=== PATIENT | female | born 1995 | race Hispanic/Latino ===

== ENCOUNTER 2020-01-28 17:37 | Emergency (ER) | payer BC, OTHER ==
[2020-01-28] MEDS ORDERED: NA CHLORIDE 0.9% 1,000 ML ONE (18:21)
[2020-01-28] MEDS ORDERED: ACETAMINOPHEN 500 MG TAB ONE (18:21)
[2020-01-28 18:39] LABS: Absolute Lymphocytes (CBC) 0.9 K/uL (0.7-4.9); Basophils % 0.4 % (0-1.3); Hematocrit 37.7 % (36.0-45.0); Lymphocytes % 43.2 % (15.3-44.8); MPV 10.5 fL (7.6-11.3); RBC Red Blood Cell Count 4.49 M/uL (3.86-4.86)
[2020-01-28 18:52] LABS: Protime INR 1.22
[2020-01-28 19:01] LABS: ALT/SGPT 134 U/L (12-78); AST/SGOT 128 U/L (15-37); Albumin 3.7 g/dL (3.4-5.0); Alkaline Phosphatase 66 U/L (45-117); BUN Blood Urea Nitrogen 9 mg/dL (7-18); Bicarbonate 23 mmol/L (21-32); Bilirubin Direct 0.2 mg/dL (0-0.2); Bilirubin Total 0.7 mg/dL (0.2-1.0); CKMB Creatine Kinase MB < 1.0 ng/mL (0.3-3.6); Creatine Phosphokinase 96 U/L (26-192); Glucose Level 108 mg/dL (74-106); Lipase 102 U/L (73-393); Potassium 3.2 mmol/L (3.5-5.1); Sodium Level 139 mmol/L (136-145); Troponin (Emerg Dept Use Only) < 0.02 ng/mL (0.0-0.045)
[2020-01-28] MEDS ORDERED: DIPHENHYDRAMINE 50 MG/ML VIAL ONE (19:21)
[2020-01-28] MEDS ORDERED: METOCLOPRAMIDE 10 MG/2mL INJ ONE (19:21)
[2020-01-28] MEDS ORDERED: dexAMETHasone 10 MG/ML VIAL ONE (19:21)
[2020-01-28] MEDS ORDERED: POTASSIUM CL SA 10 MEQ TAB PO ONE (19:25)
[2020-01-28 19:55] LABS: Blood Morphology Comment NOT SEEN (NOT SEEN); Platelet Estimate DECR
--- NOTE | 2020-01-28 20:04 | RAD REPORT ---
EXAM DESCRIPTION: RAD - Chest Single View - 01/28/2020 7:43 pm CLINICAL HISTORY: DYSPNEA COMPARISON: None TECHNIQUE: AP portable chest image was obtained 01/28/2020 7:43 pm . FINDINGS: Lung volumes are very low. Low lung volumes, portable technique and large body habitus jacinto it detail. No focal mass or consolidation seen. Heart and vasculature are normal. No measurable pleur al effusion and no pneumothorax. No acute bony abnormality seen. No acute aortic findings suspected. IMPRESSION: Limited portable examination without acute cardiopulmonary finding.
--- NOTE | 2020-01-28 20:07 | RAD REPORT ---
EXAM DESCRIPTION: CT - Chest For Pe Angio - 01/28/2020 7:48 pm CLINICAL HISTORY: Chest pain;Dyspnea COMPARISON: Chest Single View dated 01/28/2020 TECHNIQUE: Dynamically enhanced 3 mm thick images of the chest were obtained during administration o f approximately 150mL Isovue 370 IV contrast. Coronal and oblique MIP reconstruction images were gene rated and reviewed. Exam utilizes a protocol to evaluate the pulmonary arterial tree. All CT scans are performed using dose optimization technique as appropriate and may include automated exposure control or mA/KV adjustment according to patient size. FINDINGS: No pulmonary emboli are identified. The aorta as imaged shows no acute or suspicious finding. No pericardial thickening or effusion. No infiltrate or mass in the lung parenchyma. No pleural effusion or pleural thickening. No mediastinal or hilar suspicious masses. No chest wall masses or abnormal axillary lymphadenopathy. Limited upper abdomen imaging shows probable fatty infiltration. Borderline to mild splenomegaly is p resent but neither the liver nor spleen are fully imaged. IMPRESSION: No pulmonary emboli identified. No other significant or suspicious chest findings. Fatty infiltration and suspected splenomegaly of partially imaged liver and spleen.
[2020-01-28 21:50] LABS: Urine Bacteria <20 /HPF (<20); Urine Culture Reflex Order NOT NEEDED; Urine RBC <5 /HPF (NONE SEEN)
[2020-01-28 21:50] LABS: Urine Blood NEGATIVE (NEG); Urine Glucose NEGATIVE (NEG); Urine Protein NEGATIVE (NEG); Urine pH 5.5 (5.0-7.0)
--- NOTE | 2020-01-28 22:41 | EDPHYS ---
Physician Documentation [facility] Name: Deidra Acevedo Age: 24 yrs Sex: Female : 1995 Arrival Date: 01/28/2020 Time: 17:42 Bed 8 Private MD: ED Physician Michael Tracy HPI: 01/27 18:51 This 24 yrs old Female presents to ER via Wheelchair with complaints of jr8 Headache, Fever, Cough, Shortness Of Breath. 18:51 Onset: The symptoms/episode began/occurred gradually, 4 day(s) ago. Associated signs jr8 and symptoms: Pertinent positives: fever, malaise, cough, shortness of breath, chest tightness, and body aches . The patient has not experienced similar symptoms in the past. The patient has not recently seen a physician. Stated that she was covid tested via nasal PCR and came back negative but getting worse . 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 - Social history:: Smoking status: unknown. ROS: 18:51 Eyes: Negative for injury, pain, redness, and discharge, Neck: Negative for injury, jr8 pain, and swelling, Abdomen/GI: Negative for abdominal pain, nausea, vomiting, diarrhea, and constipation, Back: Negative for injury and pain, MS/Extremity: Negative for injury and deformity, Skin: Negative for injury, rash, and discoloration. 18:51 Constitutional: Positive for body aches, chills, fever, malaise. 18:51 ENT: Positive for sore throat. 18:51 Cardiovascular: Positive for chest pain, Negative for edema, orthopnea, palpitations, paroxysmal nocturnal dyspnea. 18:51 Respiratory: Positive for cough, shortness of breath, Negative for sputum production, wheezing. 18:51 Neuro: Positive for headache. Exam: 18:51 Eyes: Pupils equal round and reactive to light, extra-ocular motions intact. Lids and jr8 lashes normal. Conjunctiva and sclera are non-icteric and not injected. Cornea within normal limits. Periorbital areas with no swelling, redness, or edema. ENT: Nares patent. No nasal discharge, no septal abnormalities noted. Tympanic membranes are normal and external auditory canals are clear. Oropharynx with no redness, swelling, or masses, exudates, or evidence of obstruction, uvula midline. Mucous membranes moist. 18:51 Abdomen/GI: Soft, non-tender, with normal bowel sounds. No distension or tympany. No guarding or rebound. No evidence of tenderness throughout. Back: No spinal tenderness. No costovertebral tenderness. Full range of motion. Skin: Warm, dry with normal turgor. Normal color with no rashes, no lesions, and no evidence of cellulitis. MS/ Extremity: Pulses equal, no cyanosis. Neurovascular intact. Full, normal range of motion. Neuro: Awake and alert, GCS 15, oriented to person, place, time, and situation. Cranial nerves II-XII grossly intact. Motor strength 5/5 in all extremities. Sensory grossly intact. Cerebellar exam normal. Normal gait. 18:51 Constitutional: The patient appears alert, awake, anxious, obviously ill. 18:51 Cardiovascular: Rate: tachycardic, Rhythm: regular, Pulses: Pulses are 2+ in right radial artery and left radial artery. Heart sounds: normal, Edema: is not appreciated. 18:51 Respiratory: the patient does not display signs of respiratory distress, Respirations: tachypnea, that is mild, Breath sounds: are clear throughout, no bronchial sounds, no decreased breath sounds, no rales, rhonchi, no stridor, no wheezing. Vital Signs: 18:03 BP 121 / 96; Pulse 133; Resp 32; Temp 103.2(O); Pulse Ox 100% ; Weight 118.39 kg; sv Height 5 ft. 4 in. (162.56 cm); 18:42 BP 161 / 70; Pulse 113; Resp 29; Pulse Ox 100% ; jl7 19:38 BP 155 / 78; Pulse 111; Resp 27 S; Pulse Ox 100% on R/A; jd3 20:13 BP 130 / 69; Pulse 110; Resp 25 S; Temp 100.8(O); Pulse Ox 99% on R/A; jd3 21:22 BP 124 / 67; Pulse 116; Resp 26 S; Pulse Ox 98% on R/A; jd3 22:06 Pulse 99; Resp 22 S; Temp 99.0(O); Pulse Ox 98% on R/A; jd3 23:00 Pulse 96; Resp 20 S; Pulse Ox 97% on R/A; jd3 18:03 Body Mass Index 44.80 (118.39 kg, 162.56 cm) sv MDM: 18:12 Patient medically screened. [facility] 22:05 Data reviewed: vital signs, nurses notes, lab test result(s), EKG, radiologic studies, [facility] CT scan, plain films. Data interpreted: Pulse oximetry: on room air is 98 %. Interpretation: normal. Counseling: I had a detailed discussion with the patient and/or guardian regarding: the historical points, exam findings, and any diagnostic results supporting the discharge/admit diagnosis, lab results, radiology results, the need for outpatient follow up, a family practitioner, to return to the emergency department if symptoms worsen or persist or if there are any questions or concerns that arise at home. Response to treatment: the patient's symptoms have markedly improved after treatment, patient is well hydrated. ED course: Patient without any source of bacterial infection based on labs and exam. Symptoms consistent with COVID-19 Viral illness. Able to maintain airway and with normal oxygen saturation. Not needing oxygen at this time. VS normalizing after antipyretics and fluids. Patient ok to go home at this time with f/u. Retested her as it sounds like first test was false positive and incorrectly done from what patient was telling us. Knows to come back if worse. Spoke to her PCP as well . 01/27 18:09 Order name: Fibrinogen [facility] 01/27 18:09 Order name: C-Reactive Protein [facility] 01/27 18:09 Order name: D-Dimer; Complete Time: 19:13 [facility] 01/27 18:09 Order name: Basic Metabolic Panel; Complete Time: 19:13 [facility] 01/27 18:09 Order name: Blood Culture Adult (2) [facility] 01/27 18:09 Order name: CBC with Diff; Complete Time: 20:06 [facility] 01/27 18:09 Order name: Ckmb; Complete Time: 19:13 [facility] 01/27 18:09 Order name: CPK; Complete Time: 19:13 [facility] 01/27 18:09 Order name: Lactate; Complete Time: 19:40 [facility] 01/27 18:09 Order name: LFT's; Complete Time: 19:13 [facility] 01/27 18:09 Order name: Lipase; Complete Time: 19:13 8 01/27 18:09 Order name: Procalcitonin; Complete Time: 19:40 8 01/27 18:09 Order name: Protime (+inr); Complete Time: 19:13 8 01/27 18:09 Order name: Ptt, Activated; Complete Time: 19:13 8 01/27 18:09 Order name: Troponin (emerg Dept Use Only); Complete Time: 19:13 8 01/27 18:09 Order name: Urine Microscopic Only; Complete Time: 22:05 8 01/27 18:09 Order name: Chest Single View XRAY; Complete Time: 20:06 8 01/27 18:10 Order name: Fibrinogen; Complete Time: 19:13 EDMS 01/27 18:10 Order name: C-Reactive Protein; Complete Time: 19:13 EDMS 01/27 18:38 Order name: Glucose, Ancillary Testing; Complete Time: 18:45 EDMS 01/27 18:47 Order name: COVID-19 [facility] 01/27 19:14 Order name: CT Chest For PE Angio; Complete Time: 20:19 8 01/27 19:38 Order name: Manual Differential; Complete Time: 20:06 EDMS 01/27 21:41 Order name: Urine Dipstick--Ancillary (enter results); Complete Time: 22:05 wi5 01/27 21:41 Order name: Urine --Ancillary (enter results); Complete Time: 22:05 wi5 01/27 22:29 Order name: Lactate Sepsis 2 HR Follow-up; Complete Time: 22:39 EDMS 01/27 18:09 Order name: Accucheck; Complete Time: 18:45 01/27 18:09 Order name: Cardiac monitoring; Complete Time: 18:45 01/27 18:09 Order name: EKG - Nurse/Tech; Complete Time: 18:45 01/27 18:09 Order name: IV Saline Lock - Large Bore; Complete Time: 18:45 01/27 18:09 Order name: Labs collected and sent; Complete Time: 18:45 8 01/27 18:09 Order name: O2 Per Protocol; Complete Time: 18:45 01/27 18:09 Order name: O2 Sat Monitoring; Complete Time: 18:45 jr8 01/27 18:09 Order name: Urine Dipstick-Ancillary (obtain specimen); Complete Time: 21:41 jr8 Administered Medications: 18:45 Drug: Acetaminophen 1000 mg Route: PO; hb 19:45 Follow up: Response: No adverse reaction; Temperature is decreased jd3 18:45 Drug: NS 0.9% 1000 ml Route: IV; Rate: 1000 ml; Site: right antecubital; hb 19:45 Follow up: Response: No adverse reaction; IV Status: Completed infusion; IV Intake: jd3 1000ml 19:36 Drug: Decadron - Dexamethasone 10 mg Route: IVP; Site: right antecubital; jd3 20:21 Follow up: Response: No adverse reaction jd3 19:36 Drug: Reglan 10 mg Route: IVP; Site: right antecubital; jd3 20:21 Follow up: Response: No adverse reaction jd3 19:36 Drug: Benadryl 25 mg Route: IVP; Site: right antecubital; jd3 20:21 Follow up: Response: No adverse reaction jd3 19:36 Drug: Potassium Chloride 40 mEq Route: PO; jd3 20:21 Follow up: Response: No adverse reaction jd3 Disposition: 01/28/20 22:41 Discharged to Home. Impression: Viral infection, unspecified, Fever, unspecified, Dehydration. - Condition is Stable. - Discharge Instructions: Dehydration, Adult, Viral Respiratory Infection, COVID-19. - Prescriptions for Zofran 4 mg Oral Tablet - take 1 tablet by ORAL route every 12 hours As needed; 20 tablet. prednisone 10 mg Oral tablet - take 1 tablet by ORAL route 2 times per day for 14 days; 28 tablet. - Medication Reconciliation Form, Thank You Letter, Antibiotic Education, Prescription Opioid Use form. - Follow up: Private Physician; When: 1 week; Reason: Recheck today's complaints, Continuance of care, Re-evaluation by your physician. - Problem is new. - Symptoms have improved. Addendum: 01/31/2020 06:02 Co-signature as Attending Physician, Michael Tracy MD I agree with the assessment and c vu plan of care. Signatures: Dispatcher [employer] Edna Vigil RN RN sv Anderson, Corey, MD MD cha Roszak, Josh, PA PA jr8 Eva Felton RN RN Funmilayo Hirsch RN RN jl7 Rai Acosta RN RN jd3 Corrections: (The following items were deleted from the chart) 01/27 23:18 22:41 01/28/2020 22:41 Discharged to Home. Impression: Viral infection, unspecified; jd3 Fever, unspecified; Dehydration. Condition is Stable. Forms are Medication Reconciliation Form, Thank You Letter, Antibiotic Education, Prescription Opioid Use. Follow up: Private Physician; When: 1 week; Reason: Recheck today's complaints, Continuance of care, Re-evaluation by your physician. Problem is new. Symptoms have improved. jr8
--- NOTE | 2020-01-28 22:41 | ER ---
Nurse's Notes [facility] Name: Deidra Acevedo Age: 24 yrs Sex: Female : 1995 Arrival Date: 01/28/2020 Time: 17:42 Bed 8 Private MD: Diagnosis: Viral infection, unspecified;Fever, unspecified;Dehydration Presentation: 01/27 17:59 Chief complaint: Patient states: headache, fever Tmax 103, unable to sleep, SOB worse sv with the headache, cough, unable to walk, generalized weakness, chest tightness since . Pressure in right side of jaw. Tested for COVID on 01/24/20 was negative. Coronavirus screen: Surgical mask placed on patient. Patient moved to private room, placed in contact and droplet isolation with eye protection until further assessment. Patient reports a cough. Patient reports shortness of breath or difficulty breathing. Patient reports a measured and/or subjective temperature greater than 100.4F. Patient denies travel on a cruise ship or to a country the [facility] currently lists as an affected area. Patient denies contact with known and/or suspected case of COVID-19. Ebola Screen: No symptoms or risks identified at this time. Risk Assessment: Do you want to hurt yourself or someone else? Patient reports no desire to harm self or others. Onset of symptoms was January 24, 2020. 17:59 Method Of Arrival: Wheelchair sv 17:59 Acuity: KIM 2 sv 18:03 Initial Sepsis Screen: Does the patient meet any 2 criteria? RR > 20 per min. Temp sv <36.0*C (96.8*F)) or > 38.3*C (100.9*F). HR > 90 bpm. Yes Does the patient have a suspected source of infection? Yes: Other: fever. Triage Assessment: 17:59 Headache History: The patient has had previous headaches. General: Appears in no sv apparent distress. uncomfortable, obese, Behavior is cooperative, appropriate for age. Pain: Complains of pain in face, scalp and chest. Neuro: Level of Consciousness is awake, alert, obeys commands, Oriented to person, place, time, situation, Reports dizziness, headache photophobia. Respiratory: Reports shortness of breath cough that is non-productive, Respiratory effort is even, Respiratory pattern is tachypnea. 19:39 Pain: Pain began gradually, Also complains of nausea. 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 - Social history:: Smoking status: unknown. Screenin:41 Abuse screen: Denies threats or abuse. Denies injuries from another. Nutritional jl7 screening: No deficits noted. Tuberculosis screening: No symptoms or risk factors identified. Fall Risk IV access (20 points). Total Rasmussen Fall Scale indicates No Risk (0-24 pts). Assessment: 18:09 Reassessment: Code Sepsis called. sv 18:30 General: Appears distressed, Behavior is cooperative, anxious, restless. Pain: Pain hb currently is 7 out of 10 on a pain scale. Neuro: Level of Consciousness is awake, alert, obeys commands, Oriented to person, place, time, situation. Cardiovascular: Capillary refill < 3 seconds Patient's skin is warm and dry. Rhythm is sinus tachycardia. Respiratory: Reports shortness of breath at rest cough that is productive, Airway is patent Respiratory effort is mildly labored Respiratory pattern is tachypnea. GI: Reports nausea. : No signs and/or symptoms were reported regarding the genitourinary system. EENT: No signs and/or symptoms were reported regarding the EENT system. Derm: Skin is pink, warm \T\ dry. Musculoskeletal: Reports body aches. 19:37 General: Appears uncomfortable, Behavior is cooperative, anxious. Pain: Complains of jd3 pain in head Quality of pain is described as aching, pressure. Neuro: Level of Consciousness is awake, alert, obeys commands, Oriented to person, place, time, situation. Cardiovascular: Capillary refill < 3 seconds Patient's skin is warm and dry. Rhythm is sinus tachycardia. Respiratory: Reports shortness of breath at rest cough that is persistent Airway is patent Respiratory effort is even, shallow, Respiratory pattern is tachypnea. GI: Abdomen is round non-distended, Abd is soft and non tender X 4 quads. Reports nausea. : No signs and/or symptoms were reported regarding the genitourinary system. EENT: No signs and/or symptoms were reported regarding the EENT system. Derm: Skin is intact, Skin is dry, Skin is normal, Skin temperature is warm. Musculoskeletal: Circulation, motion, and sensation intact. Range of motion: intact in all extremities, Reports body aches. 20:27 Reassessment: No changes from previously documented assessment. Patient and/or family jd3 updated on plan of care and expected duration. Pain level reassessed. Patient states feeling better. 21:00 Reassessment: Niki GODFREY on phone requesting to speak with ERP, informed ERP with sg pt, Niki states she will text/call the ERP herself. 21:08 Reassessment: father updated about the patent's status. mother's number- [phone]. mg2 21:22 Reassessment: No changes from previously documented assessment. Patient and/or family jd3 updated on plan of care and expected duration. Pain level reassessed. awaiting disposition and results. 22:07 Reassessment: Patient appears in no apparent distress at this time. Patient and/or jd3 family updated on plan of care and expected duration. Pain level reassessed. Patient states feeling better. 23:00 Reassessment: Patient appears in no apparent distress at this time. Patient and/or jd3 family updated on plan of care and expected duration. Pain level reassessed. Patient is alert, oriented x 3, equal unlabored respirations, skin warm/dry/pink. awaiting family for discharge Patient states feeling better. Vital Signs: 18:03 BP 121 / 96; Pulse 133; Resp 32; Temp 103.2(O); Pulse Ox 100% ; Weight 118.39 kg; sv Height 5 ft. 4 in. (162.56 cm); 18:42 BP 161 / 70; Pulse 113; Resp 29; Pulse Ox 100% ; jl7 19:38 BP 155 / 78; Pulse 111; Resp 27 S; Pulse Ox 100% on R/A; jd3 20:13 BP 130 / 69; Pulse 110; Resp 25 S; Temp 100.8(O); Pulse Ox 99% on R/A; jd3 21:22 BP 124 / 67; Pulse 116; Resp 26 S; Pulse Ox 98% on R/A; jd3 22:06 Pulse 99; Resp 22 S; Temp 99.0(O); Pulse Ox 98% on R/A; jd3 23:00 Pulse 96; Resp 20 S; Pulse Ox 97% on R/A; jd3 18:03 Body Mass Index 44.80 (118.39 kg, 162.56 cm) sv ED Course: 17:42 Patient arrived in ED. mr 17:59 Arm band placed on. sv 18:02 Triage completed. sv 18:07 Kunal Staples PA is PHCP. jr8 18:07 Michael Tracy MD is Attending Physician. jr8 18:42 Patient has correct armband on for positive identification. Placed in gown. Bed in low jl7 position. Call light in reach. Side rails up X2. secured entrance monitor on. Pulse ox on. NIBP on. 18:42 Inserted saline lock: 20 gauge in right antecubital area, using aseptic technique. jl7 Blood collected. 18:43 Initial lab(s) drawn, by ED staff, sent to lab. First set of blood cultures drawn by ED jl7 staff. Second set of blood cultures drawn by lab staff. EKG done, by ED staff, reviewed by Kunal SANTOS. 18:44 Eva Felton, RN is Primary Nurse. hb 19:43 Chest Single View XRAY In Process Unspecified. EDMS 19:49 CT Chest For PE Angio In Process Unspecified. EDMS 23:00 No provider procedures requiring assistance completed. IV discontinued, intact, jd3 bleeding controlled, No redness/swelling at site. Pressure dressing applied. Administered Medications: 18:45 Drug: Acetaminophen 1000 mg Route: PO; hb 19:45 Follow up: Response: No adverse reaction; Temperature is decreased jd3 18:45 Drug: NS 0.9% 1000 ml Route: IV; Rate: 1000 ml; Site: right antecubital; hb 19:45 Follow up: Response: No adverse reaction; IV Status: Completed infusion; IV Intake: jd3 1000ml 19:36 Drug: Decadron - Dexamethasone 10 mg Route: IVP; Site: right antecubital; jd3 20:21 Follow up: Response: No adverse reaction jd3 19:36 Drug: Reglan 10 mg Route: IVP; Site: right antecubital; jd3 20:21 Follow up: Response: No adverse reaction jd3 19:36 Drug: Benadryl 25 mg Route: IVP; Site: right antecubital; jd3 20:21 Follow up: Response: No adverse reaction jd3 19:36 Drug: Potassium Chloride 40 mEq Route: PO; jd3 20:21 Follow up: Response: No adverse reaction jd3 Intake: 19:45 IV: 1000ml; Total: 1000ml. jd3 Outcome: 22:41 Discharge ordered by MD. varma 23:01 Condition: stable jd3 23:01 Discharge instructions given to patient, Instructed on discharge instructions, follow up and referral plans. medication usage, Demonstrated understanding of instructions, follow-up care, medications. 23:18 Discharged to home via wheelchair, with family. jd3 23:18 Patient left the ED. jd3 Signatures: Dispatcher [employer] EDMS Edna Wilkerson RN JUVE sv Homero Reyes, RN JUVE sanders Natalie Evans mr BelKunal PA PA jr8 Baxter, Heather RN Funmilayo Casanova RN RN jl7 Rai Acosta RN RN jMoo Alvarado RN RN mg2 Corrections: (The following items were deleted from the chart) 18:06 17:59 Acuity: KIM 3 sv sv 20:18 20:13 BP 130 / 69; Pulse 110bpm; Resp 25bpm; Spontaneous; Pulse Ox 99% RA; jd3 jd3 21:23 21:22 BP 124 / 67; Pulse 127bpm; Resp 26bpm; Spontaneous; Pulse Ox 98% RA; jd3 jd3 23:05 23:00 Reassessment: Patient appears in no apparent distress at this time. Patient jd3 and/or family updated on plan of care and expected duration. Pain level reassessed. Patient is alert, oriented x 3, equal unlabored respirations, skin warm/dry/pink. Patient states feeling better. jd3
[2020-01-28 23:56] VITALS: BP 124/67
[2020-01-28 23:57] VITALS: TEMP 99
[2020-01-28 23:58] VITALS: O2SAT 97
--- NOTE | 2020-01-29 10:56 | EKG ---
Test Date: 2020-01-28 Test Time: 18:33:10 Consumer Insight Manager: HB MEASUREMENT RESULTS: Intervals: Rate: 118 MO: 150 QRSD: 74 QT: 304 QTc: 426 [place]: P: 42 MO: 150 QRS: 41 T: 6 INTERPRETIVE STATEMENTS: Sinus tachycardia Cannot rule out Anterior infarct, age undetermined Abnormal ECG No previous ECG available for comparison Electronically Signed On 01-29-20 10:53:58 CDT by Guerrero Dave
== END 2020-01-28 23:18 | disposition home or self-care (01) ==
LOC: ER 17:37
DX: B34.9 Viral infection, unspecified (principal); Z20.828 Contact with and (suspected) exposure to other viral communicable diseases; E86.0 Dehydration
CPT/HCPCS: 96361; 93005; 87040 ×2; 85025; 80048; 36415; 85384; 82550; 81025; 85610; 82947; 85379; 80076; 83605 ×2; 85730; 84484; 82553; 83690; 84145; 86140; 71275; 71045; 96375; 96374; 99284; U0001; Q9967; J2765; J1200; J1100; J7030; 81003; 81015

== ENCOUNTER 2021-04-20 07:35 | Emergency (ER) | payer BC ==
[2021-04-20 08:52] LABS: Absolute Lymphocytes (CBC) 1.2 K/uL (0.7-4.9); Basophils % 0.3 % (0-1.3); Hematocrit 38.4 % (36.0-45.0); Lymphocytes % 28.6 % (15.3-44.8); MPV 9.7 fL (7.6-11.3); RBC Red Blood Cell Count 4.52 M/uL (3.86-4.86)
[2021-04-20 09:14] LABS: Potassium 3.4 mmol/L (3.5-5.1)
[2021-04-20] MEDS ORDERED: ACETAMINOPHEN 500 MG TAB ONE (09:16)
[2021-04-20] MEDS ORDERED: ONDANSETRON 4 MG/2 ML VIAL ONE (10:30)
[2021-04-20] MEDS ORDERED: NA CHLORIDE 0.9% 1,000 ML ONE (10:30)
[2021-04-20] MEDS ORDERED: CASIRIVIMAB/IMDEVIMAB 10 ML VIAL ONE (11:06)
[2021-04-20] MEDS ORDERED: NA CHLORIDE 0.9% 250 ML ONE (11:42)
--- NOTE | 2021-04-20 12:25 | EDPHYS ---
Physician Documentation [facility] Name: Deidra Acevedo Age: 25 yrs Sex: Female : 1995 Arrival Date: 04/20/2021 Time: 07:43 Bed 20 Private MD: ED Physician Michael Tracy HPI: 04/20 08:21 This 25 yrs old Female presents to ER via Wheelchair with complaints of kb Nausea, Dizziness. 08:21 The patient presents to the emergency department with nausea, vomiting. Onset: The kb symptoms/episode began/occurred 4 day(s) ago. Possible causes: unknown. The symptoms are aggravated by nothing. The symptoms are alleviated by nothing. Associated signs and symptoms: Pertinent positives: abdominal pain, nausea, vomiting. Severity of symptoms: At their worst the symptoms were moderate in the emergency department the symptoms are unchanged. The patient has not experienced similar symptoms in the past. The patient has not recently seen a physician. Pt reports nausea, vomiting, dizziness, cough and decreased appetite since Tuesday. Fever started yesterday. 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 - Social history:: Smoking status: Patient denies any tobacco usage or history of. ROS: 08:21 Cardiovascular: Negative for chest pain, palpitations, and edema. kb 08:21 Constitutional: Positive for fever. 08:21 Respiratory: Positive for cough. 08:21 Abdomen/GI: Positive for nausea and vomiting. 08:21 Neuro: Positive for dizziness. 08:21 All other systems are negative. Exam: 08:26 Constitutional: This is a well developed, well nourished patient who is awake, alert, kb and in no acute distress. Head/Face: Normocephalic, atraumatic. ENT: Moist Mucous membranes Respiratory: Respirations even and unlabored. No increased work of breathing, no retractions or nasal flaring. Abdomen/GI: Soft, non-tender. No distention Skin: Warm, dry with normal turgor. Normal color. MS/ Extremity: Pulses equal, no cyanosis. Neurovascular intact. Full, normal range of motion. Neuro: Awake and alert, GCS 15, oriented to person, place, time, and situation. Moves all extremities. Normal gait. Psych: Awake, alert, with orientation to person, place and time. Behavior, mood, and affect are within normal limits. Vital Signs: 07:45 BP 135 / 66; Pulse 123; Resp 18 S; Temp 101.8(O); Pulse Ox 98% on R/A; Weight 120.2 kg aa5 (R); Height 5 ft. 4 in. (162.56 cm) (R); Pain 0/10; 08:59 BP 112 / 61 Supine; Pulse 112 LA; tc5 08:59 BP 122 / 61 Sitting; Pulse 110 LA; tc5 08:59 BP 99 / 63 Standing; Pulse 120 LA; tc5 10:13 BP 136 / 74; Pulse 102; Resp 15; Temp 99.1; Pulse Ox 98% ; Pain 0/10; tc5 11:30 BP 117 / 71; Pulse 99; Resp 16; Pulse Ox 98% ; tc5 12:04 BP 122 / 71; Pulse 98; Resp 18; Pulse Ox 98% ; tc5 12:50 BP 122 / 71; Pulse 98; Resp 18; Pulse Ox 98% ; Pain 0/10; tc5 13:14 BP 128 / 80; Pulse 94; Resp 18; Pulse Ox 97% ; tc5 07:45 Body Mass Index 45.49 (120.20 kg, 162.56 cm) aa5 Isabelle Coma Score: 08:59 Eye Response: spontaneous(4). Verbal Response: oriented(5). Motor Response: obeys tc5 commands(6). Total: 15. MDM: 07:45 Patient medically screened. kb 08:26 Data reviewed: vital signs, nurses notes. Data interpreted: Pulse oximetry: on room air kb is 98 %. Interpretation: normal. 12:24 Counseling: I had a detailed discussion with the patient and/or guardian regarding: the kb historical points, exam findings, and any diagnostic results supporting the discharge/admit diagnosis, lab results, the need for outpatient follow up, a family practitioner, to return to the emergency department if symptoms worsen or persist or if there are any questions or concerns that arise at home. 04/20 07:56 Order name: CBC with Diff; Complete Time: 08:53 kb 04/20 07:56 Order name: Basic Metabolic Panel; Complete Time: 09:15 kb 04/20 07:56 Order name: [place] Screen Profile; Complete Time: 09:15 kb 04/20 09:52 Order name: SARS-COV-2 RT PCR; Complete Time: 09:52 EDMS 04/20 07:51 Order name: Orthostatics kb 04/20 07:56 Order name: IV Start; Complete Time: 08:49 kb 04/20 09:54 Order name: Vital Signs kb Administered Medications: 08:58 Drug: Tylenol 1000 mg Route: PO; tc5 13:15 Follow up: Response: No adverse reaction tc5 10:13 Drug: NS 0.9% 1000 ml Route: IV; Rate: 1000 ml; Site: right forearm; tc5 11:29 Follow up: Response: No adverse reaction tc5 12:05 Follow up: IV Status: Completed infusion; IV Intake: 1000ml tc5 13:15 Follow up: Response: No adverse reaction tc5 10:13 Drug: Zofran (Ondansetron) 4 mg Route: IVP; Site: right forearm; tc5 11:29 Follow up: Response: No adverse reaction tc5 13:15 Follow up: Response: No adverse reaction tc5 11:29 Drug: REGEN-COV Dose Pack 120 mg/mL-120 mg/mL (EUA) 1 application Route: IV; Rate: tc5 calculated rate; Site: right forearm; 12:49 Follow up: IV Status: Completed infusion; IV Intake: 260ml tc5 13:14 Follow up: IV Status: Completed infusion tc5 Disposition: 04/21 05:51 Co-signature as Attending Physician, Michael Tracy MD I agree with the assessment and dayanara plan of care. Disposition Summary: 04/20/21 12:24 Discharge Ordered Location: Home kb Condition: Stable kb Diagnosis - Coronavirus infection, unspecified kb Followup: kb - With: Emergency Department - When: As needed - Reason: Worsening of condition Followup: kb - With: Private Physician - When: 2 - 3 days - Reason: Recheck today's complaints, Continuance of care, Re-evaluation by your physician Discharge Instructions: - Discharge Summary Sheet kb - COVID-19 kb - COVID-19 Frequently Asked Questions kb - 10 Things You Can Do to Manage Your COVID-19 Symptoms at Home - [facility] [place] kb Forms: - Medication Reconciliation Form kb - Thank You Letter kb - Antibiotic Education kb - Prescription Opioid Use kb Signatures: Dispatcher [employer] EDMS Angie Kearns, CREW CHIEF-C CREW CHIEF-Michael Osborn MD MD cha Calderon, Audri, RN RN aa5 Saira Bolaños RN RN tc5 Corrections: (The following items were deleted from the chart) 04/20 09:08 07:52 CORONAVIRUS+MR.[email or web address].BRZ ordered. EDMS EDMS
--- NOTE | 2021-04-20 12:25 | ER ---
Nurse's Notes [facility] Name: Deidra Acevedo Age: 25 yrs Sex: Female : 1995 Arrival Date: 04/20/2021 Time: 07:43 Bed 20 Private MD: Diagnosis: Coronavirus infection, unspecified Presentation: 04/20 07:45 Chief complaint: Patient states: "I've been having nausea, vomiting, and dizziness aa5 since Tuesday and today I passed out and woke up to my mom standing over me". Pt also reports fever, slight cough, and no appetite since Tuesday. 07:45 Coronavirus screen: cough unrelated to allergies, fever, nausea. Ebola Screen: Patient aa5 denies exposure to infectious person. Initial Sepsis Screen: Does the patient meet any 2 criteria? Temp <36.0*C (96.8*F)) or > 38.3*C (100.9*F). HR > 90 bpm. Does the patient have a suspected source of infection? Yes:. Risk Assessment: Do you want to hurt yourself or someone else? Patient reports no desire to harm self or others. Onset of symptoms was March 2021. 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 - Social history:: Smoking status: Patient denies any tobacco usage or history of. Screenin:01 Abuse screen: Denies threats or abuse. Denies injuries from another. Nutritional tc5 screening: No deficits noted. Tuberculosis screening: No symptoms or risk factors identified. Fall Risk Assessment: 08:47 General: Appears in no apparent distress. distressed, comfortable, obese, Behavior is tc5 calm, cooperative, appropriate for age. Pain: Denies pain. GI: Reports vomiting, reports she has been vomiting and fever, had syncopal episose this am. 10:59 Reassessment: pt has been consented for Regeneron infusion. iw Vital Signs: 07:45 BP 135 / 66; Pulse 123; Resp 18 S; Temp 101.8(O); Pulse Ox 98% on R/A; Weight 120.2 kg aa5 (R); Height 5 ft. 4 in. (162.56 cm) (R); Pain 0/10; 08:59 BP 112 / 61 Supine; Pulse 112 LA; tc5 08:59 BP 122 / 61 Sitting; Pulse 110 LA; tc5 08:59 BP 99 / 63 Standing; Pulse 120 LA; tc5 10:13 BP 136 / 74; Pulse 102; Resp 15; Temp 99.1; Pulse Ox 98% ; Pain 0/10; tc5 11:30 BP 117 / 71; Pulse 99; Resp 16; Pulse Ox 98% ; tc5 12:04 BP 122 / 71; Pulse 98; Resp 18; Pulse Ox 98% ; tc5 12:50 BP 122 / 71; Pulse 98; Resp 18; Pulse Ox 98% ; Pain 0/10; tc5 13:14 BP 128 / 80; Pulse 94; Resp 18; Pulse Ox 97% ; tc5 07:45 Body Mass Index 45.49 (120.20 kg, 162.56 cm) aa5 Isabelle Coma Score: 08:59 Eye Response: spontaneous(4). Verbal Response: oriented(5). Motor Response: obeys tc5 commands(6). Total: 15. ED Course: 07:43 Patient arrived in ED. am2 07:45 Angie Kearns FNP-C [facility] kb 07:45 Michael Tracy MD is Attending Physician. kb 07:45 Arm band placed on. aa5 07:54 Triage completed. aa5 08:07 Saira Bolaños, JUVE is Primary Nurse. tc5 08:47 Inserted saline lock: 20 gauge in right forearm, using aseptic technique. tc5 Administered Medications: 08:58 Drug: Tylenol 1000 mg Route: PO; tc5 13:15 Follow up: Response: No adverse reaction tc5 10:13 Drug: NS 0.9% 1000 ml Route: IV; Rate: 1000 ml; Site: right forearm; tc5 11:29 Follow up: Response: No adverse reaction tc5 12:05 Follow up: IV Status: Completed infusion; IV Intake: 1000ml tc5 13:15 Follow up: Response: No adverse reaction tc5 10:13 Drug: Zofran (Ondansetron) 4 mg Route: IVP; Site: right forearm; tc5 11:29 Follow up: Response: No adverse reaction tc5 13:15 Follow up: Response: No adverse reaction tc5 11:29 Drug: REGEN-COV Dose Pack 120 mg/mL-120 mg/mL (EUA) 1 application Route: IV; Rate: tc5 calculated rate; Site: right forearm; 12:49 Follow up: IV Status: Completed infusion; IV Intake: 260ml tc5 13:14 Follow up: IV Status: Completed infusion tc5 Intake: 12:05 IV: 1000ml; Total: 1000ml. tc5 12:49 IV: 260ml; Total: 1260ml. tc5 Outcome: 12:24 Discharge ordered by MD. wolff 13:39 Patient left the ED. tc5 Signatures: Angie Kearns, BEKAH-Jm GODFREY-Allyn Burns, RN RN iw Maida Maki RN RN aa5 Prabha Ramos am2 Saira Bolaños RN RN tc5 Corrections: (The following items were deleted from the chart) 07:54 07:45 Initial Sepsis Screen: Does the patient meet any 2 criteria? HR > 90 bpm. Does aa5 the patient have a suspected source of infection? Yes: aa5
[2021-04-20 14:10] VITALS: BP 128/80; O2SAT 97
[2021-04-21 02:01] VITALS: TEMP 99.1
== END 2021-04-20 13:39 | disposition home or self-care (01) ==
LOC: ER 07:35
DX: U07.1 COVID-19 (principal)
CPT/HCPCS: 96365; 96361; 85025; 80048; 36415; 86308; 96375; 99283; U0003; J7050; J7030; J2405